=== PATIENT | male | born 1970 | race Caucasian/White ===

== ENCOUNTER 2016-12-25 22:37 | Emergency (ER) | payer OTHER ==
--- NOTE | ~2016-12-25 | CR63 ---
[facility]. [facility] A Service of [facility] RADIOLOGY TEXT RESULTS PATIENT: VICTOR MANUEL GALEANO LOCATION: SED : 70 UNIT #: [id number] AGE: [address]: JUNO KHALIL SEX: M ORDER DR: [id number] [place] [id number] E MR#: [id number] Acc #: [id number] NAME: VICTOR MANUEL GALEANO : 1970 SEX: M STUDY DATE/TIME: 12/25/2016 23:10 UNIT: SED ROOM: STUDY DESCRIPTION: CR Chest 2 View Attending Physician: Juno Khalil Ordering Physician: Physician Non-Staff Primary Care Physician: Slava Colin M.D. MEDICAL IMAGING REPORT This report is preliminary unless electronic signature is present. EXAM Chest x-ray, 12/25 at 23:10 INDICATION Headache, nausea and intermittent fever for the last 4 days. History of smoking. FINDINGS 2 views of the chest are compared with 05/31/2016. Cardiac and mediastinal contours are within normal limits. There is chronic elevation of the right hemidiaphragm. The lungs are clear. No pneumothorax. Patient is status post thoracolumbar fusion. IMPRESSION No active disease. Chronic elevation of the right hemidiaphragm. Dictated by... Chito Perez Jr., M.D. THIS IS AN ELECTRONICALLY VERIFIED REPORT Chito Perez Jr., M.D. at 12/26/2016 9:31 PM SARA/miesha TD: 12/26/2016 15:26 JOB #: [id number] MEDICAL IMAGING REPORT
[~2016-12-25 22:37] MED LIST: ACETAMINOPHEN PO; ADVIL200 M1 PO; AGGRENOX; AGGRENOX1 CAP PO; ALBUTEROL INHALER; ALBUTEROL17 GM; ALBUTEROL17 GM INH; ALPRAZOLAM; ALPRAZOLAM PO; AMITRYPTYLINE; AMOXICILLIN500 M1 PO; ANTI-INFLAMATORY; ASPIRIN EC81 M1 PO; ASPIRIN81 MG PO; AUGMENTIN875 M1 DOB; BACLOFEN10 MG PO; CELEXA20 MG PO; CEPACOL SORE T1 EAC3 MM; CIPRO PO; CLONAZEPAM0.5 MG PO; CORDARONE200 M1 PO; DICLOFENAC PO; DICYCLOMINE HCL20 MG PO; DOLOBID500 MG PO; EXELON4.6 MG EXT; FLAGYL PO; FLEXERIL10 MG PO; HYDROCODON-ACE1 EAC5 PO; HYDROCODON-ACE1 EAC9 PO; HYDROCODONE-APA1 T57; IBUPROFEN800 MG PO; INHALER; KEFLEX PO; KEFLEX500 MG PO; LORTAB 10-3251 EACH PO; LORTAB 10-5001 EACH; LORTAB 10-5001 EACH PO; LORTAB 5/500 TA1 TA1 PO; LORTAB 5/500 TA1 TA2 PO; MEDROL PO; METOPROLOL TART25 MG PO; MILK OF MAGNESIA PO; NAPROXEN PO; NEURONTIN PO; NO MEDICATIONS; NORCO 7.5-3251 EACH PO; NORFLEX100 M1 PO; PEN-VEE K PO; PERCOCET5/325 PO; PHENERGAN PO; PHENERGAN PR; PHENERGAN25 M1 DOB; PHENERGAN25 M1 PO; PHENERGAN25 MG PO; PREDNISONE; PRILOSEC; PRILOSEC PO; PRILOSEC20 MG PO; ROBAXIN500 MG PO; ROXICODONE30 M1 PO; ROXICODONE5 MG PO; SENOKOT TO GO8.6 MG PO; SEROQUEL PO; SOMA PO; STOMACH MED; ULTRAM PO; VANCOMYCIN IVP; VICODIN 5/500 T1 TAB PO; VICODIN PO; VICOPROFEN 200-1 TAB PO; VOLTAREN75 MG PO; XANAX0.5 M1; XANAX2 MG PO; ZANTAC PO; ZANTAC150 MG PO; ZOFRAN ODT4 MG DOB; ZOFRAN ODT4 MG PO; ZOFRAN PO; ZOFRANODT PO
[2016-12-25 22:58] LABS: INFLUENZA A NEG (NEG); INFLUENZA B NEG (NEG)
[2016-12-25 23:17] LABS: BASOPHIL# 0.1 X10e3 (0-0.3); BASOPHIL% 0.9 % (0-2.5); EOSINOPHIL# 0.2 X10e3 (0-0.7); EOSINOPHIL% 3.5 % (0.0-7.0); HEMATOCRIT 45.7 % (38.0-50.0); HEMOGLOBIN 15.1 gm/dL (13.0-16.0); LYMPHOCYTE# 1.7 X10e3 (1.0-3.5); LYMPHOCYTE% 26.8 % (17.0-45.0); MEAN CELL VOLUME 88.2 FL (83-96); MEAN CORPUSCULAR HEMOGLOBIN 29.1 PG (28-34); MEAN PLATELET VOLUME 9.1 FL (6.5-11.5); MONOCYTE# 0.5 X10e3 (0-1.0); MONOCYTE% 8.8 % (3.0-12.0); NEUTROPHIL# 3.7 X10e3 (1.5-7.1); PLATELET COUNT 171 X10e3 (140-420); RED BLOOD COUNT 5.18 X10e (3.90-5.60); RED CELL DISTRIBUTION WIDTH 13.1 % (11.0-15.5); WHITE BLOOD COUNT 6.2 X10e3 (4.0-10.5)
[2016-12-25 23:19] LABS: DIFF IND NO
[2016-12-25 23:34] LABS: ALBUMIN SERUM 3.8 g/dL (3.5-5.0); ALKALINE PHOSPHATASE 68 U/L (32-92); ALT (SGPT) 35 U/L (10-40); AST (SGOT) 34 U/L (10-42); BILIRUBIN,TOTAL 1.1 mg/dL (0.2-2.0); BLOOD UREA NITROGEN 13 mg/dL (9-23); BUN/CREATININE RATIO 14.44; CALCIUM SERUM 8.4 mg/dL (8.4-10.2); CARBON DIOXIDE 28 mmol/L (22-31); CHLORIDE 106 mmol/L (100-111); CREATININE SERUM 0.9 mg/dL (0.6-1.4); GLOM FILT RATE Estimated ABOVE60 mL/min (>60); GLUCOSE FASTING 105 mg/dL (70-110); POTASSIUM 3.7 mmol/L (3.5-5.1); PROTEIN TOTAL SERUM 6.3 g/dL (6.0-8.3); SODIUM 137 mmol/L (135-145)
== END 2016-12-26 00:33 | disposition left against medical advice (07) ==
LOC: SED 22:37
PROVIDERS: Physician Assistant
DX: G89.29 Other chronic pain (principal); M54.9 Dorsalgia, unspecified; M54.2 Cervicalgia; H92.09 Otalgia, unspecified ear; J44.9 Chronic obstructive pulmonary disease, unspecified; K21.9 Gastro-esophageal reflux disease without esophagitis; Z90.49 Acquired absence of other specified parts of digestive tract; F17.200 Nicotine dependence, unspecified, uncomplicated; B34.9 Viral infection, unspecified
CPT/HCPCS: 71020; 80053; 85025; 87804; 94640; 96361; 96374; 96375; 99284; J1200; J1885; J2765

== ENCOUNTER 2017-06-17 20:08 | Emergency (ER) | payer OTHER ==
[~2017-06-17] VITALS: Ht 167.6 cm; Wt 86.2 kg
== END 2017-06-17 20:49 | disposition home or self-care (01) ==
LOC: SED 20:08
DX: K08.89 Other specified disorders of teeth and supporting structures (principal); Z76.5 Malingerer [conscious simulation]; F41.9 Anxiety disorder, unspecified; K21.9 Gastro-esophageal reflux disease without esophagitis; J44.9 Chronic obstructive pulmonary disease, unspecified
CPT/HCPCS: 99282

== ENCOUNTER 2017-07-03 18:01 | Emergency (ER) | payer OTHER | END 2017-07-03 20:12 | disposition home or self-care (01) | LOC: CFTX 18:01 → CED 18:01 → CFTX 19:39 | DX: T22.111A Burn of first degree of right forearm, initial encounter (principal); F17.200 Nicotine dependence, unspecified, uncomplicated; K21.9 Gastro-esophageal reflux disease without esophagitis; J44.9 Chronic obstructive pulmonary disease, unspecified; F41.9 Anxiety disorder, unspecified | CPT/HCPCS: 16000; 99283 ==